=== PATIENT | male | born 1995 | race Hispanic/Latino ===

== ENCOUNTER 2023-01-01 14:25 | Emergency (ER) | payer SELFPAY ==
[~2023-01-01] VITALS: Ht 167.6 cm; Wt 93.2 kg
[2023-01-01] MEDS ORDERED: KETOROLAC TROMETHAMINE 30 MG/ML VIAL IV STA (15:46)
[2023-01-01] MEDS ORDERED: SODIUM CHLORIDE 0.9% 1000ML 1,000 ML IV SCH (16:00)
[2023-01-01] MEDS ORDERED: DEXAMETHASONE SOD PHOS INJ 4 MG/ML SDV IV ONE (16:15)
[2023-01-01] MEDS ORDERED: CLINDAMYCIN 600MG / 50ML 50 ML IV ONE ×2 (16:15→16:17)
[2023-01-01] MEDS ORDERED: KETOROLAC TROMETHAMINE 30 MG/ML VIAL ONE (16:17)
[2023-01-01] MEDS ORDERED: SODIUM CHLORIDE 0.9% 1000ML 1,000 ML ONE (16:17)
[2023-01-01] MEDS ORDERED: DEXAMETHASONE SOD PHOS INJ 4 MG/ML SDV ONE (16:17)
[2023-01-01] MEDS ORDERED: AMOX TR-K CLV1 EAC2 PO (18:29)
== END 2023-01-01 18:47 | disposition home or self-care (01) ==
LOC: FSED 14:30
DX: J02.9 Acute pharyngitis, unspecified (principal); R13.10 Dysphagia, unspecified; E86.0 Dehydration; R05.9 Cough, unspecified; R51.9 Headache, unspecified; F17.200 Nicotine dependence, unspecified, uncomplicated; Z71.6 Tobacco abuse counseling
CPT/HCPCS: 80053; 85025; 96374; 96375; 99283; J1100; J1885; J7030